=== PATIENT | female | born 1990 ===

== ENCOUNTER 2018-02-18 14:17 | Emergency (ER) | payer SELFPAY ==
[2018-02-18 14:21] VITALS: BP 135/89; PULSE 67; RESP 20; TEMP 98.3; O2SAT 98
--- NOTE | 2018-02-18 14:31 | ED PDOC ---
HPI: General Adult Time Seen by Provider: 02/18/18 14:26 Chief Complaint (Nursing): ENT Problem Chief Complaint (Provider): Foregin Body In Left Ear History Per: Patient History/Exam Limitations: no limitations Onset/Duration Of Symptoms: Days (x1) Current Symptoms Are (Timing): Still Present Additional Complaint(s): 27 year old female, with no significant past medical history, presenting for evaluation of foreign body in left ear x1 day. Patient states she was cleaning her left ear with a Q-tip this morning when a piece broke off and became stuck in her left ear. She denies any other medical complaints. PMD: None Past Medical History Reviewed: Historical Data, Nursing Documentation, Vital Signs Vital Signs: Last Vital Signs Temp 98.3 F 02/18/18 14:20 Pulse 67 02/18/18 14:20 Resp 20 02/18/18 14:20 BP 135/89 02/18/18 14:20 Pulse Ox 98 02/18/18 14:51 - Medical History PMH: No Chronic Diseases - Surgical History Surgical History: No Surg Hx - Family History Family History: States: No Known Family Hx - Living Arrangements Living Arrangements: With Family - Social History Current smoker - smoking cessation education provided: No Alcohol: None Drugs: Denies - Home Medications Home Medications: Ambulatory Orders Medication Instructions Recorded Cyclobenzaprine [Cyclobenzaprine 10 mg PO TID #20 tab 04/22/17 HCl] Ibuprofen [Motrin] 600 mg PO Q6 #20 tab 04/22/17 - Allergies Allergies/Adverse Reactions: Allergies Allergy/AdvReac Type Severity Reaction Status Date / Time No Known Allergies Allergy Verified 02/18/18 14:19 Review of Systems ROS Statement: Except As Marked, All Systems Reviewed And Found Negative ENT: Positive for: Other (cotton stuck in left ear) Physical Exam - Reviewed Nursing Documentation Reviewed: Yes Vital Signs Reviewed: Yes - Physical Exam Appears: Positive for: Well, Non-toxic, No Acute Distress Head Exam: Positive for: ATRAUMATIC Skin: Positive for: Normal Color. Negative for: Rash Eye Exam: Positive for: Normal appearance ENT: Positive for: Other (small piece of cotton in left auditory canal) Cardiovascular/Chest: Positive for: Regular Rate, Rhythm Respiratory: Positive for: Normal Breath Sounds. Negative for: Respiratory Distress Neurologic/Psych: Positive for: Alert, Oriented - ECG O2 Sat by Pulse Oximetry: 98 (RA) Pulse Ox Interpretation: Normal Medical Decision Making Medical Decision Makin:28 Impression: 27 year old female with foreign body in left ear Plan: Alligator forceps used to remove foreign body. Patient tolerated foreign body removal without difficulty, no complications Patient was advised to follow up as needed with clinic. Scribe Attestation: Documented by Lui Mendes, acting as a scribe for Karissa Mattson PA-C. Provider Scribe Attestation: All medical record entries made by the scribe were at my direction and personally dictated by me. I have reviewed the chart and agree that the record accurately reflects my personal performance of the history, physical exam, medical decision making, and the department course for this patient. I have also personally directed, reviewed, and agree with the discharge instructions and disposition. Disposition - Clinical Impression Clinical Impression: Foreign body of ear, left - Patient ED Disposition Is Patient to be Admitted: No Counseled Patient/Family Regarding: Diagnosis, Need For Followup - Disposition Referrals: [facility] [Outside] Disposition: Routine/Home Disposition Time: 14:50 Condition: IMPROVED Additional Instructions: Avoid use of q-tips going forward. Follow up as needed with clinic. Instructions: Removing Objects Stuck in the Ear Forms: [facility] ([facility])
== END 2018-02-18 15:49 | disposition home or self-care (01) ==
LOC: H.ER 14:17
DX: T16.2XXA Foreign body in left ear, initial encounter (principal)